=== PATIENT | female | born 1945 | race Caucasian/White ===

== ENCOUNTER → 2017-06-24 | Day surgery (SDC) | payer OTHER, MEDICARE ==
[~2017-06-24] VITALS: Ht 157.5 cm; Wt 63.5 kg
--- NOTE | 2017-06-24 11:27 | Operative Report ---
Operative/Inv Procedure Report Surgery Date: 06/24/17 Name of Procedure: Left breast excisional biopsy with wire localization Pre-Operative Diagnosis: Left breast mass, discordant biopsy Post-Operative Diagnosis: Same Estimated Blood Loss: scant Surgeon/Railway Head Tender: Madelyn Celestin MD Anesthesia: local monitored anesthesi Specimens: Left breast mass Operative/Procedure Note Note: Patient had a finding on ultrasound and biopsy was performed. Those biopsy results were benign however considered discordant. She was brought for an excisional biopsy with wire localization. Preoperative wire localization was performed the films reviewed. She is brought to the operating room placed under anesthesia. The left breast was prepped and draped in a sterile fashion using ChloraPrep. Local anesthesia 1% lidocaine exception Marcaine was given and a curvilinear incision was made in the upper outer quadrant. The wire was brought into the incision. The area of concern was grasped using an Allis clamp. Specimen was removed and marked for orientation and margin map. Intraoperative x-ray confirmed the presence of the clip in the specimen. Hemostasis was adequate. Deep tissue was approximated using interrupted Vicryl sutures and the skin was closed using a running Biosyn subcutaneous color stitch. Steri-Strips and sterile dressings were applied and the patient was transferred to the recovery room in satisfactory condition having tolerated the procedure well.
--- NOTE | 2017-06-24 13:05 | MAMMOGRAPHY REPORT ---
PROCEDURE: US GUIDANCE FOR BREAST PREOPERATIVE NEEDLE LOCALIZATION, left MM POST NEEDLE LOCALIZATION SINGLE CC VIEW, leftBREAST. SPECIMEN RADIOGRAPHY. CLINICAL INFORMATION: Ultrasound-guided biopsy was performed of a new sub-5 mm avascular hypoechogenicity within the left breast at 2 o'clock , 9 cm from the nipple on 05/19/2017. The histology report was apparently discordant with the sonographic findings. Presurgical needle localization is requested prior to surgery. COMPARISON: Prior studies done on 05/16/2017 and 05/19/2017. TECHNIQUE AND FINDINGS: The details of the procedure, as well as the risks, benefits, and alternatives to the procedure were explained to the patient in detail and all of her questions were answered, after which, written informed consent was obtained. Prior to the procedure, sonography revealed a tissue marker adjacent to focal area of hypoechogenicity within the left breast at 2 o'clock , 9 cm from the nipple. A time-out was performed, the lesion intended for needle localization was targeted and the skin of the left breast was then prepped and draped in the usual sterile fashion. Using sonographic guidance, sterile technique and buffered 2% lidocaine without epinephrine for local anesthesia, a 5 cm Kopan's needle was placed within the biopsy proved malignancy at 2 o'clock , 9 cm from the nipple within the left breast. The patient tolerated the procedure well.. The single view mammogram further confirmed accurate placement of the wire within the intended mass. Previously placed tissue marker was also identified adjacent to the wire. The worksheet was appropriately labeled and was sent to the OR with the patient. Subsequently, following excision of the mass, the specimen radiography was performed which revealed target within the specimen with intact wire including the previously placed tissue marker. IMPRESSION: 1. Successful sonographic guided wire localization of the left breast focal abnormality at 2 o'clock , 9 cm from the nipple. 2. Mammographic confirmation of accurate needle localization along with appropriate marking for presurgical roadmap with worksheet. 3. Final specimen radiograph confirming complete, adequate excision of the mass and removal of the previously placed tissue marker and intact wire. Results were called to Dr. Celestin in the operating room at the time of imaging. The histology report is pending.
== END ==
LOC: STS 02:44
DX: D24.2 Benign neoplasm of left breast (principal)
CPT/HCPCS: 76942; 77065-LT; J0690; J2001; J2250